=== PATIENT | male | born 1980 | race American Indian/Alaskan Native ===

== ENCOUNTER 2018-06-12 22:32 | Emergency (ER) | payer SELFPAY ==
[2018-06-12 22:54] VITALS: BP 150/105; PULSE 70; RESP 20; TEMP 98.1; O2SAT 99
--- NOTE | 2018-06-12 22:57 | C.PDOC ---
History Of Present Illness Pt brought in for evaluation after being found sleeping. Admitted to using PCP. However at this time he is awake and oriented and requesting to leave. Offers no complaints. Time Seen by Provider: 06/12/18 22:54 Chief Complaint (Nursing): Substance Abuse History Per: EMS Past Medical History Reviewed: Historical Data, Vital Signs Vital Signs: Last Vital Signs Temp 98.1 F 06/12/18 22:39 Pulse 70 06/12/18 22:39 Resp 20 06/12/18 22:39 BP 150/105 H 06/12/18 22:39 Pulse Ox 99 06/12/18 22:39 - Medical History PMH: No Chronic Diseases - [facility] Procedures SUTURE OF LIP LACERATION (02/09/14) TETANUS TOXOID ADMINIST (02/09/14) Family History: States: Unknown Family Hx - Social History Hx Tobacco Use: No Hx Alcohol Use: No Hx Substance Use: Yes (PCP) - Immunization History Hx Tetanus Toxoid Vaccination: No Hx Influenza Vaccination: No Hx Pneumococcal Vaccination: No Review Of Systems Except As Marked, All Systems Reviewed And Found Negative. Physical Exam - Physical Exam Appears: No Acute Distress Skin: Warm, Dry Head: Atraumatic, Normacephalic Eye(s): bilateral: PERRL, EOMI, Other (injected conjunctivae) Nose: Normal Lips: Normal Appearing Neck: Normal ROM, Trachea Midline Chest: Symmetrical Respiratory: No Accessory Muscle Use, No Other (respiratory distress) Gastrointestinal/Abdominal: No Distention Back: No Decreased ROM Extremity: Normal ROM, No Deformity Neurological/Psych: Normal Motor, Normal Sensation, Other (steady gait) ED Course And Treatment O2 Sat by Pulse Oximetry: 99 Disposition - Disposition Disposition: HOME/ ROUTINE Disposition Time: 22:54 Condition: IMPROVED Instructions: Drug Abuse and Drug Addiction (DC) - Clinical Impression Clinical Impression: PCP (phencyclidine) abuse
== END 2018-06-12 23:00 | disposition home or self-care (01) ==
LOC: C.ER 22:32
DX: F16.10 Hallucinogen abuse, uncomplicated (principal)

== ENCOUNTER 2018-06-16 02:18 | Emergency (ER) | payer SELFPAY ==
[2018-06-16 02:38] VITALS: O2SAT 98
[2018-06-16 02:40] VITALS: BMI 21.2
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
[2018-06-16 06:09] VITALS: BP 153/101; PULSE 73; RESP 18; TEMP 98.2
--- NOTE | 2018-06-16 08:23 | CT ---
Date of service: 06/16/2018 PROCEDURE: CT HEAD WITHOUT CONTRAST. HISTORY: head trauma, etoh COMPARISON: 02/09/2014. TECHNIQUE: Axial computed tomography images were obtained through the head/brain without intravenous contrast. Radiation dose: Total exam DLP = 1219.16 mGy-cm. This CT exam was performed using one or more of the following dose reduction techniques: Automated exposure control, adjustment of the mA and/or kV according to patient size, and/or use of iterative reconstruction technique. FINDINGS: HEMORRHAGE: No intracranial hemorrhage. BRAIN: Reyna-white matter differentiation is preserved. There is no mass, mass effect or abnormal extra-axial fluid collection. There is no territorial infarction. The midline sagittal structures are normal. VENTRICLES: There is mild age-related global parenchymal volume loss and proportionate enlargement of the ventricles and cortical sulci. CALVARIUM: There is no calvarial fracture. There is a small right frontal scalp hematoma. PARANASAL SINUSES: Mild mucoperiosteal thickening in the ethmoid air cells. The remaining included paranasal sinuses are clear. MASTOID AIR CELLS: Predominantly clear. OTHER FINDINGS: None. IMPRESSION: No acute intracranial abnormality. A preliminary report was provided by [facility].
== END 2018-06-16 06:18 | disposition home or self-care (01) ==
LOC: C.ER 02:18
DX: F19.10 Other psychoactive substance abuse, uncomplicated (principal)

== ENCOUNTER 2018-09-03 21:42 | Emergency (ER) | payer SELFPAY ==
[2018-09-03 21:43] VITALS: BMI 21.2
--- NOTE | 2018-09-03 22:00 | C.PDOC ---
Time Seen by Provider: 09/03/18 21:59 Chief Complaint (Nursing): Substance Abuse Past Medical History Vital Signs: Last Vital Signs Temp 97.6 F 09/03/18 21:49 Pulse 122 H 09/03/18 21:49 Resp 22 09/03/18 21:49 BP 144/92 H 09/03/18 21:49 Pulse Ox 100 09/03/18 21:49 - Medical History PMH: Denies: Chronic Kidney Disease - [facility] Procedures SUTURE OF LIP LACERATION (02/09/14) TETANUS TOXOID ADMINIST (02/09/14) Family History: States: Unknown Family Hx - Social History Hx Tobacco Use: No Hx Alcohol Use: Yes Hx Substance Use: Yes (PCP) - Immunization History Hx Tetanus Toxoid Vaccination: No Hx Influenza Vaccination: No Hx Pneumococcal Vaccination: No ED Course And Treatment O2 Sat by Pulse Oximetry: 100 Disposition Counseled Patient/Family Regarding: Studies Performed, Diagnosis - Disposition Disposition Time: 22:00
[2018-09-03] MEDS ORDERED: Naloxone 0.4 mg/ml Inj (Adult) ONE (22:05)
--- NOTE | 2018-09-04 00:31 | C.PDOC ---
History Of Present Illness 37 year old male brought in via EMS for public intoxication with pin point pupils. Admits to ETOH use today. Patient has had many presentation with the same. <Mamadou Rojas - Last Filed: 09/04/18 00:32> History Per: Patient, EMS History/Exam Limitations: no limitations Onset/Duration Of Symptoms: Hrs Current Symptoms Are (Timing): Still Present Modifying Factor(s): Alcohol Involuntary Hold By: None Recent travel outside of the [place]: No <Mamadou Rojas - Last Filed: 09/04/18 00:32> <Kavon Salazar - Last Filed: 09/04/18 05:29> Time Seen by Provider: 09/03/18 21:59 Chief Complaint (Nursing): Substance Abuse Past Medical History Reviewed: Historical Data, Nursing Documentation, Vital Signs Vital Signs: Last Vital Signs Temp 97.6 F 09/03/18 21:49 Pulse 122 H 09/03/18 21:49 Resp 22 09/03/18 21:49 BP 144/92 H 09/03/18 21:49 Pulse Ox 100 09/03/18 22:00 - Medical History PMH: Denies: Chronic Kidney Disease - [facility] Procedures SUTURE OF LIP LACERATION (02/09/14) TETANUS TOXOID ADMINIST (02/09/14) Family History: States: Unknown Family Hx - Social History Hx Tobacco Use: No Hx Alcohol Use: Yes Hx Substance Use: Yes (PCP) - Immunization History Hx Tetanus Toxoid Vaccination: No Hx Influenza Vaccination: No Hx Pneumococcal Vaccination: No <Mamadou Rojas - Last Filed: 09/04/18 00:32> Vital Signs: Last Vital Signs Temp 98.2 F 09/04/18 05:19 Pulse 89 09/04/18 05:19 Resp 16 09/04/18 05:19 BP 131/80 09/04/18 05:19 Pulse Ox 97 09/04/18 05:19 - [facility] Procedures SUTURE OF LIP LACERATION (02/09/14) TETANUS TOXOID ADMINIST (02/09/14) <Kavon Salazar - Last Filed: 09/04/18 05:29> Review Of Systems Constitutional: Negative for: Fever, Chills Cardiovascular: Negative for: Chest Pain, Palpitations Respiratory: Negative for: Cough, Shortness of Breath Gastrointestinal: Negative for: Nausea, Vomiting Neurological: Negative for: Weakness, Numbness <Mamadou Rojas E - Last Filed: 09/04/18 00:32> Physical Exam - Physical Exam Appears: Non-toxic, Other (ETOH on breath, stuporous) Skin: Normal Color, Warm, Dry Head: Atraumatic, Normacephalic Eye(s): bilateral: Other (Pin point pupils) Oral Mucosa: Moist Neck: Normal, Supple Chest: Symmetrical, No Tenderness Cardiovascular: Rhythm Regular Respiratory: Normal Breath Sounds, No Rales, No Rhonchi, No Wheezing Gastrointestinal/Abdominal: Soft, No Tenderness Neurological/Psych: Oriented x3, Normal Speech <Mamadou Rojas E - Last Filed: 09/04/18 00:32> ED Course And Treatment O2 Sat by Pulse Oximetry: 100 (Room air) Pulse Ox Interpretation: Normal <Mamadou Rojas E - Last Filed: 09/04/18 00:32> Pulse Ox Interpretation: Normal Reevaluation Time: 05:28 Reassessment Condition: Improved <Kavon Salazar - Last Filed: 09/04/18 05:29> Medical Decision Making Medical Decision Making: alcohol and maybe narcotics abuse as pt improved with Narcan IV <Mamadou Rojas E - Last Filed: 09/04/18 00:32> Disposition - Disposition Disposition Time: 01:00 <Mamadou Rojas E - Last Filed: 09/04/18 00:32> Counseled Patient/Family Regarding: Studies Performed, Diagnosis, Need For Followup <Charlotte Salazarlilia - Last Filed: 09/04/18 05:29> - Disposition Referrals: [facility] [Outside] Disposition: HOME/ ROUTINE Condition: FAIR Instructions: Alcohol Abuse and Alcoholism (DC), Polysubstance Abuse Forms: [facility] (Northern Irish) - Clinical Impression Clinical Impression: Alcohol abuse, Substance abuse - Scribe Statement The provider has reviewed the documentation as recorded by the Scribe Marcos Mcqueen All medical record entries made by the Scribe were at my direction and personally dictated by me. I have reviewed the chart and agree that the record accurately reflects my personal performance of the history, physical exam, medical decision making, and the department course for this patient. I have also personally directed, reviewed, and agree with the discharge instructions and disposition. <Mamadou Rojas E - Last Filed: 09/04/18 00:32> Physician Patient Turnover Patient Signed Over To: Kavon Salazar Handoff Comments: dispo in AM when sober <Mamadou Rojas - Last Filed: 09/04/18 00:32>
--- NOTE | 2018-09-04 00:31 | C.PDOC ---
Time Seen by Provider: 09/03/18 21:59 Chief Complaint (Nursing): Substance Abuse Past Medical History Vital Signs: Last Vital Signs Temp 97.6 F 09/03/18 21:49 Pulse 122 H 09/03/18 21:49 Resp 22 09/03/18 21:49 BP 144/92 H 09/03/18 21:49 Pulse Ox 100 09/04/18 00:31 - Medical History PMH: Denies: Chronic Kidney Disease - [facility] Procedures SUTURE OF LIP LACERATION (02/09/14) TETANUS TOXOID ADMINIST (02/09/14) Family History: States: Unknown Family Hx - Social History Hx Tobacco Use: No Hx Alcohol Use: Yes Hx Substance Use: Yes (PCP) - Immunization History Hx Tetanus Toxoid Vaccination: No Hx Influenza Vaccination: No Hx Pneumococcal Vaccination: No ED Course And Treatment O2 Sat by Pulse Oximetry: 100 Disposition - Disposition Forms: [employer] (Mauritian) - Clinical Impression Clinical Impression: Alcohol abuse, Substance abuse
[2018-09-04 05:19] VITALS: BP 131/80; PULSE 89; RESP 16; TEMP 98.2; O2SAT 97
== END 2018-09-04 05:39 | disposition home or self-care (01) ==
LOC: C.ER 21:42
DX: F10.10 Alcohol abuse, uncomplicated (principal); F19.10 Other psychoactive substance abuse, uncomplicated; Y90.9 Presence of alcohol in blood, level not specified

== ENCOUNTER 2018-10-31 05:51 | Emergency (ER) | payer MEDICAID, OTHER ==
[2018-10-31 05:51] VITALS: BMI 21.2
[2018-10-31] MEDS ORDERED: Aluminum Hydroxide/Magnesium Hydroxide Susp (30 mL) PO STA (06:16)
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
[2018-10-31] MEDS ORDERED: Aluminum Hydroxide/Magnesium Hydroxide Susp (30 mL) ONE (06:30)
[2018-10-31 06:43] LABS: BASO % 0.7 % (0.0-2.0); EOS # 0.3 K/uL (0.0-0.7); EOS % 6.3 % (0.0-4.0); HEMOGLOBIN 13.8 g/dL (12.0-18.0); LYMPH # 1.5 K/uL (1.0-4.3); LYMPH % 30.9 % (20.0-40.0); MEAN CELL VOLUME 102.9 fL (80.0-94.0); MEAN CORPUSCULAR HEMOGLOBIN 34.7 pg (27.0-31.0); MEAN CORPUSCULAR HGB CONC 33.7 g/dL (33.0-37.0); MEAN PLATELET VOLUME 7.5 fL (7.2-11.7); MONO # 0.6 K/uL (0.0-0.8); MONO % 12.6 % (0.0-10.0); NEUT # 2.4 K/uL (1.8-7.0); NEUT % 49.5 % (50.0-75.0); NRBC % 0.1 % (0.0-2.0); RBC 3.99 Mil/uL (4.40-5.90); RED CELL DISTRIBUTION WIDTH 13.6 % (11.5-14.5); WHITE BLOOD COUNT 4.9 K/uL (4.8-10.8)
[2018-10-31 06:56] LABS: ALB/GLOB RATIO 1.8 (1.0-2.1); ALT/SGPT 11 U/L (21-72); AST/SGOT 27 U/L (17-59); BLOOD UREA NITROGEN 11 mg/dL (9-20); CALCIUM 8.8 mg/dl (8.6-10.4); GFR NON-AFRICAN AMERICAN > 60; LIPASE 131 U/L (23-300)
--- NOTE | 2018-10-31 09:20 | CT ---
Date of service: 10/31/2018 PROCEDURE: CT HEAD WITHOUT CONTRAST. HISTORY: fainted COMPARISON: 06/16/2018 TECHNIQUE: Axial computed tomography images were obtained through the head/brain without intravenous contrast. Radiation dose: Total exam DLP = 1203.85 mGy-cm. This CT exam was performed using one or more of the following dose reduction techniques: Automated exposure control, adjustment of the mA and/or kV according to patient size, and/or use of iterative reconstruction technique. FINDINGS: HEMORRHAGE: No intracranial hemorrhage. BRAIN: No mass effect or edema. No atrophy or chronic microvascular ischemic changes. VENTRICLES: Unremarkable. No hydrocephalus. CALVARIUM: Unremarkable. PARANASAL SINUSES: Unremarkable as visualized. No significant inflammatory changes. MASTOID AIR CELLS: Unremarkable as visualized. No inflammatory changes. OTHER FINDINGS: None. IMPRESSION: Normal CT of the Head. No intracranial mass, hemorrhage or evidence of acute infarct.
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
--- NOTE | 2018-10-31 10:08 | RAD ---
Date of service: 10/31/2018 HISTORY: Palpitations COMPARISON: No prior. TECHNIQUE: Chest PA and lateral FINDINGS: LINES AND TUBES: None. LUNG AND PLEURA: The lungs are well inflated and clear. No pleural effusion or pneumothorax. HEART AND MEDIASTINUM: The heart is not enlarged. No aortic atherosclerotic calcifications present. The hilar and mediastinal contours are within normal limits. SKELETAL STRUCTURES: The bony structures are within normal limits for the patient's age. VISUALIZED UPPER ABDOMEN: Normal. OTHER FINDINGS: None. IMPRESSION: No active pulmonary disease.
[2018-10-31 10:34] VITALS: BP 166/83; PULSE 58; RESP 18; TEMP 98.4; O2SAT 98
--- NOTE | 2018-11-01 19:52 | CARD ---
APPROVED REPORT Date of service: 10/31/2018 EKG Measurement Heart [id number] <Conclusion> Normal sinus rhythm Possible Left atrial enlargement Borderline ECG
== END 2018-10-31 10:34 | disposition home or self-care (01) ==
LOC: C.ER 05:51
DX: R11.0 Nausea (principal); S00.83XA Contusion of other part of head, initial encounter; W18.30XA Fall on same level, unspecified, initial encounter
CPT/HCPCS: 70450; 70486; 71046; 80053; 83690; 84484; 85025; 93005; 96374; 99284; J2405

== ENCOUNTER 2018-11-03 20:25 | Emergency (ER) | payer MEDICAID ==
[2018-11-03 20:25] VITALS: BMI 21.2
[2018-11-03 20:36] VITALS: TEMP 98.3
--- NOTE | 2018-11-04 00:48 | C.PDOC ---
History Of Present Illness 38 year old male brought to the ED for evaluation, was apparently found outside a [employer] store intoxicated and masturbating. History is limited due to intoxication. Time Seen by Provider: 11/03/18 20:30 Chief Complaint (Nursing): Substance Abuse History Per: Patient, EMS History/Exam Limitations: intoxication Onset/Duration Of Symptoms: Hrs Current Symptoms Are (Timing): Still Present Modifying Factor(s): Alcohol Severity: Moderate Associated Symptoms: denies: Depression, Suicidal Thoughts, Suicidal Plan Involuntary Hold By: Emergency Physician Additional History Per: Patient, EMS Past Medical History Reviewed: Historical Data, Nursing Documentation, Vital Signs Vital Signs: Last Vital Signs Temp 98.3 F 11/03/18 20:31 Pulse 72 11/03/18 21:45 Resp 20 11/03/18 21:45 BP 147/92 H 11/03/18 21:45 Pulse Ox 96 11/03/18 21:45 - Medical History PMH: HTN Surgical History: No Surg Hx - [facility] Procedures SUTURE OF LIP LACERATION (02/09/14) TETANUS TOXOID ADMINIST (02/09/14) Family History: States: No Known Family Hx - Social History Hx Tobacco Use: No Hx Alcohol Use: Yes Hx Substance Use: Yes (PCP) - Immunization History Hx Tetanus Toxoid Vaccination: No Hx Influenza Vaccination: No Hx Pneumococcal Vaccination: No Review Of Systems Constitutional: Negative for: Fever, Chills Cardiovascular: Negative for: Chest Pain Respiratory: Negative for: Shortness of Breath Gastrointestinal: Negative for: Nausea, Vomiting, Abdominal Pain Skin: Negative for: Rash Neurological: Negative for: Weakness, Numbness, Headache, Dizziness Psych: Negative for: Depression, Suicidal ideation Physical Exam - Physical Exam Appears: Well, Non-toxic, No Acute Distress, Unkempt, Other (appears intoxicated) Skin: Normal Color, Warm, Dry Head: Atraumatic, Normacephalic Eye(s): bilateral: Normal Inspection, PERRL, EOMI Oral Mucosa: Moist Neck: No Midline Cervical Tenderness, No Paracervical Tenderness, No Step Off Deformity, Supple Cardiovascular: Rhythm Regular Respiratory: Normal Breath Sounds, No Rales, No Rhonchi, No Wheezing Gastrointestinal/Abdominal: Normal Exam, Bowel Sounds, Soft, No Tenderness Extremity: Normal ROM, No Tenderness, No Pedal Edema, No Calf Tenderness, No Deformity, No Swelling Neurological/Psych: Other (intoxicated, arousable to verbal stimuli, able to follow commands) Gait: Steady ED Course And Treatment O2 Sat by Pulse Oximetry: 96 (ON RA) Pulse Ox Interpretation: Normal Progress Note: Patient pending sobriety. Accucheck 93. Reevaluation Time: 03:40 Reassessment Condition: Improved (Patient is currently AAOx3, ambulating normally in the ED and is clinically sober - will discharge.) Disposition Counseled Patient/Family Regarding: Diagnosis, Need For Followup - Disposition Referrals: [facility] [Outside] Disposition: HOME/ ROUTINE Disposition Time: 03:25 Condition: GOOD Instructions: Alcohol Abuse and Alcoholism (DC) Forms: [facility] (Panamanian) Print Language: PASHTO - Clinical Impression Clinical Impression: Alcohol intoxication - Scribe Statement The provider has reviewed the documentation as recorded by the Scribe Pelon Waters All medical record entries made by the Scribe were at my direction and personally dictated by me. I have reviewed the chart and agree that the record accurately reflects my personal performance of the history, physical exam, medical decision making, and the department course for this patient. I have also personally directed, reviewed, and agree with the discharge instructions and disposition.
[2018-11-04 01:44] VITALS: BP 146/96; PULSE 78
[2018-11-04 03:27] VITALS: O2SAT 96
[2018-11-04 03:44] VITALS: RESP 18
== END 2018-11-04 03:25 | disposition home or self-care (01) ==
LOC: C.ER 20:25
DX: F10.129 Alcohol abuse with intoxication, unspecified (principal); I10 Essential (primary) hypertension

== ENCOUNTER 2018-11-08 20:28 | Emergency (ER) | payer MEDICAID | END 2018-11-09 05:36 | disposition home or self-care (01) | LOC: C.ER 20:28 | DX: F19.10 Other psychoactive substance abuse, uncomplicated (principal) ==